=== PATIENT | female | born 1955 | race Caucasian/White ===

== ENCOUNTER 2022-07-06 07:26 | Day surgery (SDC) | payer MEDICARE ==
[2022-07-04 11:32] VITALS: BP 130/78
[2022-07-04 11:40] LABS: BASOPHILS % (AUTO) 0.4 % (0.0-5.0); EOSINOPHILS % (AUTO) 1.5 % (0.0-8.0); HEMATOCRIT 42.2 % (36-48); LYMPHOCYTES % (AUTO) 35.1 % (21.0-51.0); MEAN CORPUSCULAR HEMOGLOBIN 30.6 pg (27.0-33.0); MEAN CORPUSCULAR VOLUME 98.6 fL (79-99); MONOCYTES % (AUTO) 9.6 % (3.0-13.0); NEUTROPHILS % (AUTO) 53.4 % (40.0-77.0); PLATELET COUNT (AUTO) 295 K/uL (130-400); RED BLOOD CELL COUNT(AUTO) 4.28 MIL/uL (4.00-5.50); WHITE BLOOD COUNT (AUTO) 5.3 K/uL (4.8-10.8)
[2022-07-04 11:58] LABS: INR 0.94 (0.85-1.15); POTASSIUM 4.1 mmol/L (3.5-5.1); PROTHROMBIN TIME 10.3 SEC (9.6-11.6)
[2022-07-04 12:00] LABS: PARTIAL THROMBOPLASTIN TIME 28.4 SEC (26.3-35.5)
[2022-07-06] VITALS (11 sets, daily range): BP systolic 110–181; BP diastolic 49–81
[~2022-07-06] VITALS: Ht 168.9 cm; Wt 77.8 kg
[~2022-07-06 07:26] MED LIST: ALEN70TA80 PO; ASCO500T20 PO; CAND16TA28 PO; CHELATED ZINC PO; L-METHYLFOLATE PO; LEVO88TA7 PO; MAGN400C PO; METO-391 PO; METO-408 PO; PANT40TA54 PO; UPAD15TA PO; VITAD50000 PO
[2022-07-06] MEDS ORDERED: 0.9%NACL 1000ML 1,000 ML IV ONE (07:30)
[2022-07-06] MEDS ORDERED: MIDAZOLAM HCL 1 MG/ML 2ML VIAL ONE (10:04)
[2022-07-06] MEDS ORDERED: HEPARIN 10,000 UNIT/10ML (1,000 UNIT/ML) VIAL ONE (10:04)
[2022-07-06] MEDS ORDERED: MEPERIDINE-PF 25 MG/ML SYG ONE ×2 (10:05→12:37)
[2022-07-06] MEDS ORDERED: LIDOCAINE HCL 1% MDV 50ML VIAL ONE (10:05)
[2022-07-06] MEDS ORDERED: HYDRALAZINE 20MG/ML VIAL ONE (11:10)
[2022-07-06] MEDS ORDERED: ATROPINE 1MG SYG IVP ONE (11:42)
[2022-07-06] MEDS ORDERED: PHENYLEPHRINE HCL 10 MG/ML 1ML VIAL IV ONE (12:27)
[2022-07-06] MEDS ORDERED: GLYCOPYRROLATE 0.2 MG/ML 5 ML VIAL ONE (12:28)
[2022-07-06] MEDS ORDERED: ONDANSETRON 4MG INJ ONE (12:43)
[2022-07-06] MEDS ORDERED: ISOVUE-370 50ML VIAL IV ONE ×2 (12:50→12:56)
== END 2022-07-06 17:50 | disposition home or self-care (01) ==
LOC: DAH 07:26
PROVIDERS: ATTEND Internal Medicine Cardiovascular Disease
DX: I49.3 Ventricular premature depolarization (principal); I10 Essential (primary) hypertension; Z79.01 Long term (current) use of anticoagulants; Z79.899 Other long term (current) drug therapy; Z79.890 Hormone replacement therapy; Z98.890 Other specified postprocedural states; Z90.49 Acquired absence of other specified parts of digestive tract; Z90.11 Acquired absence of right breast and nipple; Z83.3 Family history of diabetes mellitus; Z82.49 Family history of ischemic heart disease and other diseases of the circulatory system
CPT/HCPCS: 80048; 85025; 85610; 85730; 36415; 93005; 93654; 85347 ×2; C1894 ×5; C1769; C1760; C1730 ×4; A4649 ×2; C1732; Q9967 ×2; J7030; J0360; J0461; J1644 ×3; J2250; J2405; J3490 ×2; J2175 ×2; J2370; A4215; A4222; A4221; A4663; A4216; A4606; A4223 ×3; 36200; 75605; 75625; 93653; 99156; 99157